=== PATIENT | male | born 1950 ===

== ENCOUNTER 2022-01-08 11:50 | Emergency (ER) | payer MEDICARE, BC ==
[2022-01-08 12:27] LABS: ANION GAP 11.1 mEq/L (7-13); CHLORIDE,CL 107 mmol/L (98-107); PTT,PARTIAL THROMBOPLSTIN TIME 26.2 SEC (22.0-34.0); SODIUM,NA 141 mmol/L (136-145)
[2022-01-08 12:32] LABS: ESTIMATED GFR 68 mL/min (>=60)
[2022-01-08] MEDS: Aspirin 81 MG Tab.Chew PO ONE (13:25)
[2022-01-08] MEDS: Sodium Chloride 0.9% 10 ML Syringe FLUSH PRN (13:25)
== END 2022-01-08 13:32 | disposition home or self-care (01) ==
LOC: DL.ED 11:50
DX: G45.9 Transient cerebral ischemic attack, unspecified (principal)
CPT/HCPCS: 36415; 70450; 80053; 80307; 82947; 84484; 85025; 85610; 85730; 93005; 99285; A9270; J3490; 93010